=== PATIENT | female | born 1950 | race Caucasian/White ===

== ENCOUNTER 2018-06-21 10:22 | Outpatient (CLI) | payer OTHER, SELFPAY ==
[2018-06-21 11:35] LABS: TSH 1.97 uIU/mL (0.358-3.74)
== END 2018-06-21 10:42 ==
PROVIDERS: PCP Family Medicine; Visit Provider Family Medicine
DX: R00.2 Palpitations (principal)
CPT/HCPCS: 36415; 84443

== ENCOUNTER 2018-08-31 00:06 | Outpatient (CLI) | payer OTHER, SELFPAY ==
--- NOTE | 2018-08-31 09:24 | DI.MAMMO_ITS ---
SYMPTOM/DIAGNOSIS: SCREENING, Z12.31 MAMMOGRAMS: Mammograms were interpreted according to the usual protocol including computer analysis with CAD system, tomosynthesis and C view imaging. Comparison with prior examinations. Breast density C. No masses or microcalcifications are seen. There is nothing to suggest malignancy. IMPRESSION: Negative mammogram. Routine screening is recommended. Category I. MQSA ASSESSMENT OF FINDINGS: Negative. Category 1. Patient will receive a letter notifying them of these results. Bi-RADS category C. The breasts are heterogeneously dense, which may obscure small masses.
== END 2018-08-31 00:26 ==
PROVIDERS: PCP Family Medicine; Visit Provider Family Medicine
DX: Z12.31 Encounter for screening mammogram for malignant neoplasm of breast (principal)
CPT/HCPCS: 77063; 77067

== ENCOUNTER 2019-07-03 02:38 | Outpatient (CLI) | payer OTHER, SELFPAY ==
--- NOTE | 2019-07-23 11:55 | ZIOP_ITS ---
This is a ZIO Patch ordered for the indication of palpitations. Patient wore the patch for 14 days. Patient had a minimum heart rate of 41 bpm, maximum heart rate of 218 bpm with an average heart rate of 63 bpm There was one run of ventricular tachycardia lasting 9 beats with a maximum rate of 176 bpm There were 23 supraventricular tachycardia runs with the longest interval lasting 52 minutes with a rate of 218 bpm. This episode spontaneously resolved. There were rare (less than 1%) supraventricular ectopy couplets and triplets There were isolated (less than 1%) ventricular ectopic beats and couplets. Patient triggered events were associated with sinus rhythm as well as supraventricular tachycardia. CC: Dictated by: AYAD SAUNDERS MD Dictated:: [id number] <Electronically signed by Ayad Saunders M.D.> 07/23/19 1158
== END 2019-07-03 02:58 ==
PROVIDERS: PCP Family Medicine; Visit Provider Family Medicine
DX: R00.2 Palpitations (principal); I47.2 Ventricular tachycardia; I47.1 Supraventricular tachycardia
CPT/HCPCS: 0296T

== ENCOUNTER 2019-07-30 01:39 | Outpatient (CLI) | payer OTHER, SELFPAY ==
--- NOTE | 2019-07-23 11:55 | W.CARDEVENT ---
Cardiac Event Recorder Cardiac Event Note: This is a ZIO Patch ordered for the indication of palpitations. Patient wore the patch for 14 days. Patient had a minimum heart rate of 41 bpm, maximum heart rate of 218 bpm with an average heart rate of 63 bpm There was one run of ventricular tachycardia lasting 9 beats with a maximum rate of 176 bpm There were 23 supraventricular tachycardia runs with the longest interval lasting 52 minutes with a rate of 218 bpm. This episode spontaneously resolved. There were rare (less than 1%) supraventricular ectopy couplets and triplets There were isolated (less than 1%) ventricular ectopic beats and couplets. Patient triggered events were associated with sinus rhythm as well as supraventricular tachycardia.
--- NOTE | 2019-07-30 13:23 | DI.DEXA_ITS ---
EXAM: XR DEXA BONE DENSITY W/WO SHEFALI INDICATION: osteoporosis on Alendronate,M81.0. TECHNIQUE: 2D digital imaging was performed. FINDINGS: The SHEFALI image shows no evidence of compression fractures. The Bone mineral density measurements of t he lumbar spine correspond to a total T-score of -2.6. This is a 5.3 percent increase when compared with the previous exam of 2016 and a 7.2 percent decrease when compared with the baseline exam of 200 7. The bone mineral density measurements of the left hip correspond to a total T-score of -2.4 and a femoral neck T-score of -2.7, in the osteoporotic range. This is not significantly changed from 20 16. There has been a 15.5 percent decrease when compared with 2007. The bone mineral density measur ements of the left forearm correspond to a total T-score of -3.4 and a T-score of the distal third of -2.4. This is not significantly changed from 2016. The forearm was not analyzed in 2006. IMPRESSION: Osteopenia of the left forearm. Osteoporosis of the lumbar spine and left hip.
== END 2019-07-30 01:59 ==
PROVIDERS: PCP Family Medicine; Visit Provider Family Medicine
DX: M81.0 Age-related osteoporosis without current pathological fracture (principal); M85.88 Other specified disorders of bone density and structure, other site
CPT/HCPCS: 77080

== ENCOUNTER 2019-07-30 15:53 | Outpatient (CLI) | payer OTHER, SELFPAY | END 2019-07-30 16:13 | PROVIDERS: PCP Family Medicine; Visit Provider Family Medicine | DX: M81.0 Age-related osteoporosis without current pathological fracture (principal) | CPT/HCPCS: 36415; 82306 ==

== ENCOUNTER 2019-08-23 08:23 | Outpatient (CLI) | payer OTHER, SELFPAY | END 2019-08-23 08:43 | PROVIDERS: PCP Family Medicine; Visit Provider Internal Medicine Cardiovascular Disease | DX: R00.2 Palpitations (principal) | CPT/HCPCS: 93005; 93010 ==

== ENCOUNTER 2019-09-02 01:20 | Outpatient (CLI) | payer OTHER, SELFPAY ==
--- NOTE | 2019-09-02 08:45 | DI.MAMMO_ITS ---
EXAM: MG MAMMO SCREENING CLINICAL HISTORY: screening, Z12.39 TECHNIQUE: Mammograms were interpreted according to the usual protocol including computer analysis w [employer] CAD system, tomosynthesis and C-view imaging. COMPARISON: [id number] FINDINGS: The breasts are composed of heterogeneously dense tissue, which may obscure small masses, breast dens ity category C. There are no dominant masses or microcalcifications. There has been no significant i nterval change when compared with the prior images. IMPRESSION: Category 1, negative mammogram. Yearly screening mammography is recommended. BI-RADS Cat 1 - Negative Breast Density - Category C - Heterogeneously dense
== END 2019-09-02 01:40 ==
PROVIDERS: PCP Family Medicine; Visit Provider Family Medicine
DX: Z12.31 Encounter for screening mammogram for malignant neoplasm of breast (principal)
CPT/HCPCS: 77063; 77067

== ENCOUNTER 2020-09-29 00:26 | Outpatient (CLI) | payer OTHER, SELFPAY ==
--- NOTE | 2020-09-29 07:45 | DI.MAMMO_ITS ---
EXAM: MG MAMMO SCREENING CLINICAL HISTORY: screening,Z12.39. TECHNIQUE: Bilateral full field digital CC and MLO mammographic images were obtained with 3D tomosyn thesis and utilizing computer aided detection (CAD). COMPARISON: Prior mammograms dating back to 2011, the most recent being August 2019.. Left breast ultrasound 2013 was reviewed. Family history of breast cancer sister. FINDINGS: Fibroglandular tissue is dense, this decreasing the sensitivity mammogram for finding in the underlyi ng lesions. Posteriorly in the left breast there is a noncalcified well-defined oval nodule located 4 centimetres in from the nipple, slightly medial of center and measuring 6 x 4 millimeters. Spot compression 3D views recommended. No new radiographic findings in the opposite-right breast. There is no signific ant architectural distortion nor skin thickening-retraction. IMPRESSION: Moderately dense fibroglandular tissue. No radiographic evidence of malignancy in the right breast. Left breast nodule. Spot compression view and possible ultrasound recommended. BI-RADS Category 0 - Assessment Incomplete: Need additional imaging evaluation Breast Density - Category C - Heterogeneously dense Breast density Category C or D implies that the patient has dense breast tissue. Dense breast tissue can make it harder to find cancer on a mammogram. Dense breast tissue is also associated with an incr eased risk of breast cancer. This information about the result of the mammogram report was provided to the patient to raise their awareness. Use this report when you speak with the patient about their risks for breast cancer, which includes their family history. At that time, you may recommend additional screening tests (Ultrasoun d or MRI) as these tests may add significant information. A negative radiographic report should not delay biopsy if a dominant or clinically suspicious mass is present. Up to ten percent of cancers are not identified on mammography. A negative report may reinforce clinical impression. Adenosis and dense breasts may obscure an underlying neoplasm. False positive reports average 6 to 10%. Patient will receive a letter notifying them of these results.
== END 2020-09-29 00:46 ==
PROVIDERS: PCP Family Medicine; Visit Provider Emergency Medicine
DX: Z12.31 Encounter for screening mammogram for malignant neoplasm of breast (principal); N63.20 Unspecified lump in the left breast, unspecified quadrant
CPT/HCPCS: 77063; 77067

== ENCOUNTER 2020-10-06 00:37 | Outpatient (CLI) | payer OTHER, SELFPAY ==
--- NOTE | 2020-10-06 | DI.MAMMO_ITS ---
EXAM: MG MAMMO SCREEN CALL BACK UNI and U/S breast LT limited CLINICAL HISTORY: F/U MAMMO,LT BREAST NODULE. TECHNIQUE: Craniocaudal and mediolateral oblique Full Field Digital Mammography views of the left br east with Computer Aided Diagnosis followed by Tomosynthesis and left breast ultrasound. COMPARISON: Priors available for comparison. FINDINGS: Mammography/Tomosynthesis: Masses/Architectural Distortion: There is a well-defined ovoid nodule again seen posteriorly in the m edial half of the left breast on the CC views. This does appear present on prior examinations and is unchanged. Microcalcifictions: No suspicious pleomorphic-type are seen. Skin Thickening/Nipple Retraction: None. Left breast US: The lower inner and upper inner quadrants of the left breast were evaluated sonograph ically. Echotexture: Normal appearance of the glandular tissue. Shadowing: No suspicious foci. Cyst: None. Solid lesions: None seen. Ductal dilation: None. IMPRESSION: 1. No evidence of malignancy is noted. 2. A six-month follow-up left mammogram is recommended for re-evaluation. 3. The findings were discussed with the patient on the date of the examination. BI-RADS Category 3 - 6 month - Probably Benign Finding: Recommend follow-up mammography in 6 months Breast Density - Category C - Heterogeneously dense The mammogram demonstrates the patient's breast tissue is dense. Dense breast tissue is very common a nd is not abnormal but dense breast tissue can make it harder to find cancer on a mammogram. Also, de nse breast tissue may increase their breast cancer risk. This information about the result of the [facility] mogram report was provided to the patient to raise their awareness. Use this report when you speak wi th the patient about their risks for breast cancer, which includes their family history. At that time , you may recommend for more screening tests (Ultrasound or MRI) as they might be useful based on the ir risk. A negative radiographic report should not delay biopsy if a dominant or clinically suspicious mass is present. Up to ten percent of cancers are not identified on mammography. A negative report may reinforce clinical impression. Adenosis and dense breasts may obscure an underlying neoplasm. False positive reports average 6 to 10%. Patient will receive a letter notifying them of these results.
== END 2020-10-06 00:57 ==
PROVIDERS: PCP Family Medicine; Visit Provider Emergency Medicine
DX: N63.25 Unspecified lump in the left breast, overlapping quadrants (principal)
CPT/HCPCS: 76642; 77063; 77067

== ENCOUNTER 2021-04-07 01:43 | Outpatient (CLI) | payer OTHER, SELFPAY ==
--- NOTE | 2021-04-07 08:15 | DI.MAMMO_ITS ---
Exam(s) MAMMO DIAGNOSTIC UNI EXAM: MAMMO DIAGNOSTIC UNI -LEFT CLINICAL HISTORY: 3-6 MO F/U, F/U ABNORMAL MAMMO,R92.9,Z09. TECHNIQUE: Unilateral spot mammographic images were obtained with 3D Tomosynthesistechnique and util izing computer aided detection (CAD). COMPARISON: Prior mammograms dating back to 1010, the most recent being SEPTEMBER 2020. Ultrasound D ec2019 was also reviewed FINDINGS: The fibroglandular tissue of the left breast is again noted be moderately dense. There are no CAD designations in left breast. The previously described oval noncalcified nodular density posteriorly remains unchanged. This has b een waxing and waning on prior mammograms. This has the appearance of a benign finding. There are no malignant-appearing microcalcification groups in this region or elsewhere in the left br east. No new architectural distortion or skin thickening-traction IMPRESSION: Stable benign-appearing left breast finding. Appropriate follow-up is to keep this patient yearly mammogram schedule, this implying that her next bilateral mammogram would be in August or September 2021, with earlier imaging if a self detected br east change is noted.. The patient was informed of the findings and follow-up recommendations prior to leaving the [facility] today. BI-RADS Category 2 - Benign Findings Breast Density - Category C - Heterogeneously dense Breast density Category C or D implies that the patient has dense breast tissue. Dense breast tissue can make it harder to find cancer on a mammogram. Dense breast tissue is also associated with an incr eased risk of breast cancer. This information about the result of the mammogram report was provided to the patient to raise their awareness. Use this report when you speak with the patient about their risks for breast cancer, which includes their family history. At that time, you may recommend additional screening tests (Ultrasoun d or MRI) as these tests may add significant information. A negative radiographic report should not delay biopsy if a dominant or clinically suspicious mass is present. Up to ten percent of cancers are not identified on mammography. A negative report may reinforce clinical impression. Adenosis and dense breasts may obscure an underlying neoplasm. False positive reports average 6 to 10%. Patient will receive a letter notifying them of these results.
== END 2021-04-07 02:03 ==
PROVIDERS: PCP Family Medicine; Visit Provider Emergency Medicine
DX: Z09 Encounter for follow-up examination after completed treatment for conditions other than malignant neoplasm (principal); R92.2 Inconclusive mammogram
CPT/HCPCS: 77061; 77065; G0279

== ENCOUNTER 2021-08-12 01:34 | Outpatient (CLI) | payer OTHER, SELFPAY ==
--- NOTE | 2021-08-12 08:45 | DI.DEXA_ITS ---
Exam(s) XR DEXA BONE DENSITY W/WO SHEFALI EXAM: XR DEXA BONE DENSITY W/WO SHEFALI CLINICAL HISTORY: osteoporosis/ on Alendronate x 5 years,M81.0 TECHNIQUE: Routine DEXA evaluation of the lumbar spine, hip, or forearm. COMPARISON: CR XR DEXA BONE DENSITY W/WO SHEFALI from 07/30/2019 FINDINGS: Performed on a [employer] unit. Lateral image: No compression fracture evident. Lumbar Spine total T-score: -2.4 . Prior 2019 reading was -2.6 Hip total T-score:-2.6. Prior 2019 reading was -2.4 Independent reading at the level of the femoral neck yields at T-score of -2.7. Forearm total T-score: -2.7 IMPRESSION: Bone mineral density measures in the osteoporosis range. Fracture risk is high. Note: Any spine fracture indicates 5x risk for subsequent spine fracture and 2x risk for subsequent h ip fracture. World Health Organization criteria for BMD interpretation classify patients: Normal...... T- Score at or above -1.0 Osteopenic... T- Score between -1.0 and -2.5 Osteoporosis... T-Score at or below -2.5
== END 2021-08-12 01:54 ==
PROVIDERS: PCP Family Medicine; Visit Provider Family Medicine
DX: M81.0 Age-related osteoporosis without current pathological fracture (principal); Z13.820 Encounter for screening for osteoporosis
CPT/HCPCS: 77080

== ENCOUNTER 2022-04-25 03:31 | Outpatient (CLI) | payer OTHER, SELFPAY ==
[2022-04-25 13:32] LABS: Calculated LDL 129 mg/dL (<100); Cholesterol 211 mg/dL (<200); HDL Cholesterol 68 mg/dL (40-60); TSH (W/Ref FT4) 2.34 uIU/mL (0.36-3.74); Triglyceride 71 mg/dL (<150)
== END 2022-04-25 03:32 | disposition home or self-care (01) ==
LOC: LOS 03:32
PROVIDERS: PCP Family Medicine; Visit Provider Family Medicine
DX: R63.6 Underweight (principal); Z00.00 Encounter for general adult medical examination without abnormal findings; Z13.220 Encounter for screening for lipoid disorders
CPT/HCPCS: 36415; 80061; 84443

== ENCOUNTER → 2022-04-28 02:01 | Outpatient (CLI) | payer OTHER, SELFPAY ==
--- NOTE | 2022-04-28 06:45 | DI.MAMMO_ITS ---
Exam(s) MAMMO SCREENING EXAM: MAMMO SCREENING CLINICAL HISTORY: screening,z12.39 TECHNIQUE: Bilateral full field digital CC and MLO mammographic images were obtained with 3D tomosyn thesis and utilizing computer aided detection (CAD). COMPARISON: Available for comparison. FINDINGS: Masses/Architectural Distortion: None seen. Microcalcifications: No suspicious pleomorphic-type are seen. Skin Thickening/Nipple Retraction: None. IMPRESSION: 1. No significant interval change with no specific features of malignancy noted. 2. Unless there is more urgent need, screening mammography is recommended, as per [employer] guidelines. BI-RADS Category 1 - Negative Breast Density - Category C - Heterogeneously dense Breast density category C or D implies that the patient has dense breast tissue. Dense breast tissue is very common and is not abnormal but dense breast tissue can make it harder to find cancer on a ma mmogram. Also, dense breast tissue may increase their breast cancer risk. This information about the result of the mammogram report was provided to the patient to raise their awareness. Use this report when you speak with the patient about their risks for breast cancer, which includes their family hist ory. At that time, you may recommend for more screening tests (Ultrasound or MRI) as they might be us eful based on their risk. A negative radiographic report should not delay biopsy if a dominant or clinically suspicious mass is present. Up to ten percent of cancers are not identified on mammography. A negative report may reinforce clinical impression. Adenosis and dense breasts may obscure an underlying neoplasm. False positive reports average 6 to 10%. Patient will receive a letter notifying them of these results.
== END ==
PROVIDERS: PCP Family Medicine; Visit Provider Family Medicine
DX: Z12.31 Encounter for screening mammogram for malignant neoplasm of breast (principal)
CPT/HCPCS: 77063; 77067

== ENCOUNTER 2023-05-11 03:25 | Outpatient (CLI) | payer MEDICARE, BC, SELFPAY ==
--- NOTE | 2023-05-11 08:00 | DI.MAMMO_ITS ---
Exam(s) MAMMO SCREENING EXAM: MAMMO SCREENING CLINICAL HISTORY: screening,Z12.39. TECHNIQUE: Bilateral full field digital CC and MLO mammographic images were obtained with 3D tomosyn thesis and utilizing computer aided detection (CAD). COMPARISON: Prior mammograms were reviewed. FINDINGS: There has been no significant change in the appearance and distribution of the fibroglandular tissue. There are no new spiculated masses nor malignant appearing microcalcification groups. There is no significant architectural distortion nor skin thickening-retraction. IMPRESSION: No radiographic evidence of malignancy. BI-RADS Category 1 - Negative Breast Density - Category C - Heterogeneously dense Breast density Category C or D implies that the patient has dense breast tissue. Dense breast tissue can make it harder to find cancer on a mammogram. Dense breast tissue is also associated with an incr eased risk of breast cancer. This information about the result of the mammogram report was provided to the patient to raise their awareness. Use this report when you speak with the patient about their risks for breast cancer, which includes their family history. At that time, you may recommend additional screening tests (Ultrasoun d or MRI) as these tests may add significant information. A negative radiographic report should not delay biopsy if a dominant or clinically suspicious mass is present. Up to ten percent of cancers are not identified on mammography. A negative report may reinforce clinical impression. Adenosis and dense breasts may obscure an underlying neoplasm. False positive reports average 6 to 10%. Patient will receive a letter notifying them of these results.
== END 2023-05-11 03:45 ==
LOC: DI 03:25
PROVIDERS: PCP Family Medicine; Visit Provider Family Medicine
DX: Z12.31 Encounter for screening mammogram for malignant neoplasm of breast (principal)
CPT/HCPCS: 77063; 77067

== ENCOUNTER → 2023-07-06 03:13 | Outpatient (CLI) | payer MEDICARE, BC, SELFPAY ==
--- NOTE | 2023-07-06 08:45 | DI.RAD_ITS ---
Exam(s) XR KNEE LT 3V AP,LAT,CHARISSA EXAM: XR KNEE LT 3V AP,LAT,CHARISSA CLINICAL HISTORY: left knee pain,m25.562. TECHNIQUE: 2D digital imaging was performed of the left knee. Three images were obtained. AP, late ral and PA tunnel views were obtained. COMPARISON: No exams were available for comparison FINDINGS: BONES: No acute fracture is present. No bony destructive lesion is seen. JOINTS: The knee is normally aligned. No joint effusion is seen. No loose body. There is mild spurri ng of the posterior patella. SOFT TISSUE: Normal. IMPRESSION: Minimal degenerative changes of the left knee. DATA REPOSITORY: RADIATION DOSE DELIVERED:
== END ==
PROVIDERS: PCP Family Medicine; Visit Provider Nurse Practitioner Family
DX: M25.562 Pain in left knee (principal)
CPT/HCPCS: 73562

== ENCOUNTER → 2023-08-17 01:37 | Outpatient (CLI) | payer MEDICARE, BC, SELFPAY ==
--- NOTE | 2023-08-17 08:00 | DI.DEXA_ITS ---
Exam(s) XR DEXA BONE DENSITY W/WO SHEFALI EXAM: XR DEXA BONE DENSITY W/WO SHEFALI CLINICAL HISTORY: f/u bone density,OSTEOPOROSIS, M81.0 TECHNIQUE: COMPARISON: CR XR DEXA BONE DENSITY W/WO SHEFALI from 08/12/2021 FINDINGS: Lateral Spine Image: Unremarkable. No compression deformities identified. Left hip: Total T-Score: -2.2. This compares to -2.6 on the prior examination. Total Z-Score: -0.5 T- and Z-scores: Findings are consistent with osteopenia. There is osteoporosis in the femoral neck with a T-score of -2.7. Lumbar Spine: Total T-Score: -2.9. This compares to -2.8 on the prior examination. Total Z-Score: -0.7 T- and Z-scores: Findings are consistent with osteoporosis. IMPRESSION: Osteoporosis in the left femoral neck and lumbar spine.
== END ==
PROVIDERS: PCP Family Medicine; Visit Provider Family Medicine
DX: M81.0 Age-related osteoporosis without current pathological fracture (principal); Z13.820 Encounter for screening for osteoporosis
CPT/HCPCS: 77080

== ENCOUNTER → 2024-05-15 01:13 | Outpatient (CLI) | payer MEDICARE, BC, SELFPAY ==
--- NOTE | 2024-05-15 08:00 | DI.MAMMO_ITS ---
Exam(s) MAMMO SCREENING EXAM: MAMMO SCREENING CLINICAL HISTORY: screening, Z12.39 TECHNIQUE: Mammograms were interpreted according to the usual protocol including computer analysis w [employer] CAD system, tomosynthesis and C-view imaging. COMPARISON: 2013 through 2022 FINDINGS: The breasts are composed of heterogeneously dense fibroglandular densities, Breast Density category C . No suspicious masses or suspicious microcalcifications are seen. No skin thickening or abnormal axillary lymph nodes are seen. There has been no significant change from prior exams. IMPRESSION: BI-RADS Category 1, Negative mammogram. Yearly screening mammography is recommended. Breast Density Category C, heterogeneously Dense. The mammogram demonstrates the patient's breast tissue is dense. Dense breast tissue is very common a nd is not abnormal but dense breast tissue can make it harder to find cancer on a mammogram. Also, de nse breast tissue may increase breast cancer risk. This information about the result of the mammogram report was provided to the patient to raise their awareness. Use this report when you speak with the patient about their risks for breast cancer, which includes their family history. At that time, you may recommend additional screening tests (Ultrasound or MRI) as they might be useful based on their r isk. A negative radiographic report should not delay biopsy if a dominant or clinically suspicious mass is present. Up to ten percent of cancers are not identified on mammography. A negative report may reinforce clinical impression. Adenosis and dense breasts may obscure an underlying neoplasm. False positive reports average 6 to 10%.
== END ==
PROVIDERS: PCP Family Medicine; Visit Provider Family Medicine
DX: Z12.39 Encounter for other screening for malignant neoplasm of breast (principal); M81.0 Age-related osteoporosis without current pathological fracture; R92.333 Mammographic heterogeneous density, bilateral breasts; Z12.31 Encounter for screening mammogram for malignant neoplasm of breast
CPT/HCPCS: 77063; 77067

== ENCOUNTER 2024-05-17 14:40 | Outpatient (CLI) | payer MEDICARE, BC, SELFPAY ==
[2024-05-17 11:26] LABS: ALT 23 U/L (14-59); AST 22 U/L (15-37); Albumin 3.8 g/dL (3.4-5.0); Alkaline Phosphatase 56 U/L (46-116); BUN 21 mg/dL (7-18); Bilirubin, Total 0.62 mg/dL (0.2-1.0); CREATININE 0.9 mg/dL (0.55-1.02); Chloride 103 mmol/L (98-107); Glucose 80 mg/dL (74-106); Potassium 3.8 mmol/L (3.5-5.1); Sodium 142 mmol/L (136-145); Total Protein 6.8 g/dL (6.4-8.2)
[2024-05-17 11:37] LABS: Vitamin D 25 Total 102.7 ng/mL (30-100)
[2024-05-17 18:15] LABS: Parathyroid Hormone,Intact 27 pg/mL (19-88)
== END 2024-05-17 14:41 | disposition home or self-care (01) ==
LOC: LBO 14:42
PROVIDERS: PCP Family Medicine; Visit Provider Family Medicine
DX: M81.0 Age-related osteoporosis without current pathological fracture (principal); N18.9 Chronic kidney disease, unspecified
CPT/HCPCS: 36415; 80053; 82306; 83970

== ENCOUNTER 2024-05-22 02:15 | Outpatient (RCR) | payer MEDICARE, BC, SELFPAY ==
[2024-05-22] MEDS: Denosumab 60 MG/ML SYR SC (11:35)
== END 2024-06-15 23:59 | disposition home or self-care (01) ==
LOC: INF 02:15
PROVIDERS: PCP Family Medicine; Visit Provider Family Medicine
DX: M81.0 Age-related osteoporosis without current pathological fracture (principal)
CPT/HCPCS: 96372; J0897

== ENCOUNTER 2024-11-25 02:23 | Outpatient (RCR) | payer MEDICARE, BC, SELFPAY ==
[2024-11-25] MEDS: Denosumab 60 MG/ML SYR SC (13:51)
== END 2024-12-13 23:59 | disposition home or self-care (01) ==
LOC: INF 02:23
PROVIDERS: PCP Family Medicine; Visit Provider Family Medicine
DX: M81.0 Age-related osteoporosis without current pathological fracture (principal)
CPT/HCPCS: 96372; J0897

== ENCOUNTER 2024-11-27 09:21 | Outpatient (CLI) | payer MEDICARE, BC, SELFPAY ==
--- NOTE | 2024-11-27 09:15 | RT.EKG_ITS ---
APPROVED REPORT Exam: Resting ECG Reason for Exam: cardiac evaluation Patient Location: O HR:65 bpm ECG Measurements Heart Rate 65 AXIS IN 171 P 81 QRSd 106 QRS 13 QT 386 T 74 QTc 402 Conclusion Sinus rhythm...normal P axis, V-rate 50- 99 Left atrial enlargement...P, P'>60mS, <-0.15mV V1 Anteroseptal infarct, age indeterminate...Q >35mS, T neg, V1-V2
== END 2024-11-27 09:22 | disposition home or self-care (01) ==
LOC: DI.CARD 09:22
PROVIDERS: PCP Family Medicine; Visit Provider Registered Nurse
DX: I47.10 Supraventricular tachycardia, unspecified (principal)
CPT/HCPCS: 93010

== ENCOUNTER → 2024-11-27 14:35 | Outpatient (BNVA) | payer MEDICARE, BC, SELFPAY | PROVIDERS: PCP Family Medicine; Referring Provider Family Medicine; Visit Provider Registered Nurse | DX: I47.10 Supraventricular tachycardia, unspecified (principal) | CPT/HCPCS: 93005; 99204 ==

== ENCOUNTER 2024-11-29 09:11 | Outpatient (CLI) | payer MEDICARE, BC, SELFPAY ==
[2024-11-29 12:49] LABS: Abs Immature Grans 0.02 10^3/uL (0.0-0.06); Absolute Basophil Count 0.03 10^3/uL (0.0-0.2); Absolute Eosinophil Count 0.05 10^3/uL (0.0-0.7); Absolute Lymphocyte Count 1.68 10^3/uL (1.2-3.4); Absolute Monocyte Count 0.48 10^3/uL (0.1-0.8); Absolute Neutrophil Count 3.29 10^3/uL (1.2-6.7); Basophils % 0.5 %; Eosinophils % 0.9 %; HCT 43.6 % (36.0-46.0); HGB 14.7 g/dL (11.2-15.7); Immature Grans % 0.4 %; Lymphocytes % 30.3 %; MCH 29.9 pg (27.0-33.0); MCHC 33.7 % (32.0-36.0); MCV 89 fL (80-95); MPV 9.5 fL (8.0-11.0); Monocytes % 8.6 %; Neutrophils % 59.3 %; Platelet Count 252 10^3/uL (130-400); RBC 4.91 10^6/uL (3.93-5.22); RDW 12.6 % (11.7-14.6); RDW-SD 41.1 fL; WBC 5.55 10^3/uL (4.4-10.8)
[2024-11-29 12:59] LABS: ALT 24 U/L (14-59); AST 18 U/L (15-37); Albumin 3.8 g/dL (3.4-5.0); Alkaline Phosphatase 56 U/L (46-116); BUN 22 mg/dL (7-18); Bilirubin, Total 0.43 mg/dL (0.2-1.0); CREATININE 0.9 mg/dL (0.55-1.02); Calcium 9.5 mg/dL (8.5-10.1); Chloride 105 mmol/L (98-107); Estimated GFR 67.08 (mL/min/1.73m2); Glucose 90 mg/dL (74-106); Potassium 4.1 mmol/L (3.5-5.1); Sodium 143 mmol/L (136-145); TSH (W/Ref FT4) 1.84 uIU/mL (0.36-3.74); Total Protein 7.2 g/dL (6.4-8.2)
== END 2024-11-29 09:12 | disposition home or self-care (01) ==
LOC: LOS 09:12
PROVIDERS: PCP Family Medicine; Referring Provider Family Medicine; Visit Provider Family Medicine
DX: E03.9 Hypothyroidism, unspecified (principal); G93.32 Myalgic encephalomyelitis/chronic fatigue syndrome; U09.9 Post COVID-19 condition, unspecified; Z00.00 Encounter for general adult medical examination without abnormal findings
CPT/HCPCS: 36415; 80053; 84443; 85025

== ENCOUNTER 2024-12-31 06:58 | Outpatient (CLI) | payer MEDICARE, BC, SELFPAY ==
--- NOTE | 2024-12-31 12:25 | CER_ITS ---
Date of service: 12/31/24 Time of Service: 12:25 Cardiac Event Recorder Referring Provider:: Tata Guerra Indications:: Syncope Cardiac Event Note: This is a cardiac event monitor. Patient was monitored for 28 days and 16 hours. Predominant rhythm was sinus with average heart rate overall of 65. Minimum was 41. Maximum heart rate and sinus rhythm was 144 There were rare ventricular ectopic beats. There were several brief runs of n onsustained ventricular tachycardia for 5 beats in length There were multiple episodes of supraventricular tachycardia with heart rates ranging from 1 65-2 08. It could not be determined if there were symptoms related to heart rhythm
== END 2024-12-31 06:59 | disposition home or self-care (01) ==
LOC: CARDOPNVT 06:58
PROVIDERS: PCP Family Medicine; Visit Provider Internal Medicine Cardiovascular Disease
DX: R55 Syncope and collapse (principal); I47.20 Ventricular tachycardia, unspecified
CPT/HCPCS: 93270; 93272

== ENCOUNTER → 2025-01-13 08:56 | Outpatient (BNVA) | payer MEDICARE, BC, SELFPAY | PROVIDERS: PCP Family Medicine; Referring Provider Family Medicine; Visit Provider Registered Nurse | DX: I47.10 Supraventricular tachycardia, unspecified (principal) | CPT/HCPCS: 99214 ==

== ENCOUNTER 2025-05-29 03:34 | Outpatient (RCR) | payer MEDICARE, BC, SELFPAY ==
[2025-05-29] MEDS: Denosumab 60 MG/ML SYR SC (13:09)
== END 2025-06-15 23:59 | disposition home or self-care (01) ==
LOC: INF 03:34
PROVIDERS: PCP Family Medicine; Visit Provider Family Medicine
DX: M81.0 Age-related osteoporosis without current pathological fracture (principal)
CPT/HCPCS: J0897

== ENCOUNTER → 2025-07-28 10:59 | Outpatient (BNVA) | payer MEDICARE, BC, SELFPAY | PROVIDERS: PCP Family Medicine; Visit Provider Registered Nurse | DX: I47.10 Supraventricular tachycardia, unspecified (principal); R00.2 Palpitations; M81.0 Age-related osteoporosis without current pathological fracture | CPT/HCPCS: 99214 ==

== ENCOUNTER 2025-08-06 01:22 | Outpatient (CLI) | payer MEDICARE, BC, SELFPAY ==
--- NOTE | 2025-08-06 08:30 | DI.US_ITS ---
APPROVED REPORT EXAM: Comprehensive 2D, Doppler, and color-flow Echocardiogram Patient Location: Out-Patient Plastic Frame Inserter: Bailey Martinez RDCS (AE) Indications: Palpitations, SVT Other Information Study Quality: Good Conclusion Normal left ventricular wall thickness and chamber size. Ejection fraction is 60%. Wall motion is normal Normal right ventricular size and function Both atria are normal in size There are no structural valvular abnormalities Trace aortic and mitral regurgitation Mild tricuspid regurgitation with estimated right ventricular systolic pressure of 35 mmHg Wall motion Left Ventricle The left ventricle is normal size. The left ventricular systolic function is normal. The left ventricular ejection fraction is within the normal range. There is normal left ventricular wall thickness. There is normal LV segmental wall motion. There is no ventricular septal defect visualized. LVEF is 60%. Right Ventricle The right ventricle is normal size. The right ventricular systolic function is normal. Atria The left atrium size is normal. The right atrium size is normal. The interatrial septum is intact with no evidence for an atrial septal defect. Aortic Valve The aortic valve is normal in structure. Aortic valve is trileaflet. There is no aortic valvular stenosis. Trace aortic regurgitation. Mitral Valve The mitral valve is normal in structure. No evidence of mitral valve stenosis. Trace mitral regurgitation. Tricuspid Valve The tricuspid valve is normal in structure. There is no tricuspid valve stenosis. Mild tricuspid regurgitation. The RVSP is 34.9 mmHg. Pulmonic Valve The pulmonary valve is normal in structure. There is no pulmonic valvular stenosis. Trace pulmonic regurgitation. Great Vessels The aortic root is normal in size. The ascending aorta is normal in size. IVC is normal in size and collapses >50% with inspiration. Pericardium There is no pericardial effusion. 2D Dimensions IVSD d PLAX 0.74 cm F: 0.6-1.0 Ao Root d 3.32 cm F: 2.7 - 3.3 LVPW d PLAX 0.75 cm F: 0.6 - 1.0 Ao Asc Diam d 3.05 cm F: 2.3 - 3.1 LVID d PLAX 3.90 cm F: 3.8 - 5.2 LVDs 2.64 cm F: 2.2 - 3.5 LV EF Teichholz 60.2 % FS 31.58 % LV EDV (Teich) 64.0 mL LV ESV (Teich) 25.5 mL M-Mode TAPSE 2.72 cm (M/F) >1.7 Auto EF LV EDV A4C 83.2 mL LV EDV A2C 124.0 mL LV EDV BP 103.6 mL LV ESV A4C 34.4 mL LV ESV A2C 49.4 mL LV ESV BP 41.8 mL LVEF(%) A4C 58.6 % LVEF(%) A2C 60.1 % LVEF(%) BP 59.7 % LV SV A4C 48.8 ml LV SV A2C 74.5 ml LV SV BP 61.9 ml LV CO A4C 2.6 L/min LV CO A2C 3.8 L/min LV CO BP 3.2 L/min HR A4C 53.90 BPM HR A2C 51.29 BPM LV EDV Index (BP) LA Volume LA Length A4C 4.0 cm LA Length A2C 5.2 cm LA Area A4C s 14.13 cm2 LA Area A2C s 16.45 cm2 LA Vol A4C A-L 42.37 mL LA Vol A2C A-L 44.27 mL LA Vol Biplane A-L 49.3 mL LA Vol/BSA A4C A-L LA Vol/BSA A2C A-L LA Vol/BSA BP A-L 30.8 mL/m2 LA Vol A4C MOD 39.9 mL LA Vol A2C MOD 40.8 mL LA Vol BP MOD 45.9 mL RA Volume RA Area A4C 12.8 cm2 RA ESV A4C (A-L) 31.7mL RA Vol/BSA A4C A-L RA Length A4C 4.4 cm RA ESV A4C (MOD) 29.1mL LV Diastology MV E' medial 0.087 (>0.07 m/s) MV E Vmax 0.84 (0.4-1.3 m/s) MV E/E' MED 9.56 (<14) MV A Vmax 0.65 (0.4-1.3 m/s) MV E' lateral 0.108 (>0.1 m/s) E/A Ratio 1.3 MV E/E' LAT 7.74 (<14) MV E' Average 0.098 m/s MV E/E'(average) 8.56 Aortic Valve AoV Vmax 1.31 m/s LVOT Vmax 1.15 m/s AoV Peak Grad 28.1 mmHg LVOT Peak Grad 5.3 mmHg AoV Area (Vmax) 2.50 cm2 LVOT VTI 0.273 m AoV VTI 0.310 m LVOT Mean Grad 2.6 mmHg AoV Mean Anthony. 0.87 m/s LVOT SV 77.75 mL AoV Mean Grad 3.5 mmHg LVOT Diam s 1.90 cm AoV Area (VTI) 2.51 cm2 AV Regurg Peak Gr. 6.88 mmHg Velocity Ratio 0.88 AR Decel [place] 1.4m/sec2 AR DT 2468 msec AR PHT 716 msec AR Vmax 3.51 m/s Mitral Valve MV DT 137 (160-240 msec) MV Vmax TIPS 0.89 m/s MV Mean Grad 1.1 (<2mmHg) MV VTI 0.334 m Pulmonary Valve PV Vmax 0.74 (0.5-1.5 m/s) RVOT Vmax 0.69 m/s PV Peak Grad 2.2 mmHg RVOT Peak Gr. 1.9 mmHg PV Mean Anthony 0.50 m/s RVOT VTI 0.129 m PV Mean Grad 1.2 mmHg RVOT Mean Gr. 1.0 mmHg Tricuspid Valve RA Pressure 3.00 mmHg TR Vmax 2.82 m/s TV S' 0.14 m/s TR Peak Grad 31.9 mmHg RVSP (TR) 34.9 mmHg
== END 2025-08-06 01:42 ==
LOC: DI 01:22
PROVIDERS: PCP Family Medicine; Visit Provider Registered Nurse
DX: R00.2 Palpitations (principal); I36.0 Nonrheumatic tricuspid (valve) stenosis
CPT/HCPCS: 93306

== ENCOUNTER 2025-08-21 01:37 | Outpatient (CLI) | payer MEDICARE, BC, SELFPAY ==
[2025-08-21 09:57] LABS: Anion Gap 6.7 mmol/L (3-11); BUN 20 mg/dL (7-18); CO2 33.3 mmol/L (21.0-32.0); Calcium 9.1 mg/dL (8.5-10.1); Chloride 103 mmol/L (98-107); Cholesterol 207 mg/dL (<200); Glucose 91 mg/dL (74-106); HDL Cholesterol 69 mg/dL (>or=50); Potassium 3.8 mmol/L (3.5-5.1); Sodium 143 mmol/L (136-145); Vitamin D 25 Total 74 ng/mL (30-100)
== END 2025-08-21 01:38 | disposition home or self-care (01) ==
LOC: LBO 01:37
PROVIDERS: PCP Family Medicine; Visit Provider Family Medicine
DX: I10 Essential (primary) hypertension (principal); M81.0 Age-related osteoporosis without current pathological fracture; Z13.6 Encounter for screening for cardiovascular disorders
CPT/HCPCS: 36415; 77063; 77067; 77080; 80048; 80061; 82306

== ENCOUNTER → 2025-08-21 02:05 | Outpatient (CLI) | payer MEDICARE, BC, SELFPAY ==
--- NOTE | 2025-08-21 06:15 | DI.DEXA_ITS ---
Exam(s) XR DEXA BONE DENSITY W/WO SHEFALI EXAM: XR DEXA BONE DENSITY W/WO SHEFALI CLINICAL HISTORY: osteoporosis,menopausal disorder,n95,9 TECHNIQUE: COMPARISON: CR XR DEXA BONE DENSITY W/WO SHEFALI from 08/17/2023 FINDINGS: Lateral Spine Image: Unremarkable. No compression deformities identified. Left hip: Total T-Score: -2.1. This compares to -2.2 on the prior examination. Total Z-Score: -0.3 T- and Z-scores: The findings are consistent with osteopenia. Lumbar Spine: Total T-Score: -2.9. This is unchanged compared to the prior examination. Total Z-Score: -0.5 T- and Z-scores: The findings are consistent with osteoporosis. There is osteoporosis in the left forearm with a total T-score of -3.8. There is a Z-score of -1.3. IMPRESSION: Findings of osteoporosis are again seen in the lumbar spine and left forearm.
--- NOTE | 2025-08-21 06:15 | DI.MAMMO_ITS ---
Exam(s) MAMMO SCREENING EXAM: MAMMO SCREENING CLINICAL HISTORY: screening,z12.39 TECHNIQUE: Bilateral full field digital CC and MLO mammographic images were obtained with 3D tomosynthesis and utilizing computer aided detection (CAD). COMPARISON: Comparison is made with prior examinations. FINDINGS: Masses/Architectural Distortion: No suspicious masses or areas of architectural distortion are present. Microcalcifications: No suspicious pleomorphic-type are seen. Skin Thickening/Nipple Retraction: None. IMPRESSION: 1. No significant interval change with no specific features of malignancy noted. 2. Unless there is more urgent need, screening mammography is recommended, as per [place] [employer] guidelines. BI-RADS Category 1 - Negative Breast Density - Category C - The breast are heterogeneously dense, which may obscure small masses. Breast density Category C or D implies that the patient has dense breast tissue. Dense breast tissue can make it harder to find cancer on a mammogram. Dense breast tissue is also associated with an increased risk of breast cancer. This information about the result of the mammogram report was provided to the patient to raise their awareness. Use this report when you speak with the patient about their risks for breast cancer, which includes their family history. At that time, you may recommend additional screening tests (Ultrasound or MRI) as these tests may add significant information. A negative radiographic report should not delay biopsy if a dominant or clinically suspicious mass is present. Up to ten percent of cancers are not identified on mammography. A negative report may reinforce clinical impression. Adenosis and dense breasts may obscure an underlying neoplasm. False positive reports average 6 to 10%. Patient will receive a letter notifying them of these results.
== END ==
LOC: DI 02:05
PROVIDERS: PCP Family Medicine; Visit Provider Family Medicine
DX: Z12.31 Encounter for screening mammogram for malignant neoplasm of breast (principal); N95.9 Unspecified menopausal and perimenopausal disorder
CPT/HCPCS: 77063; 77067; 77080